=== PATIENT | female | born 1950 | race Caucasian/White ===

== ENCOUNTER 2016-07-03 07:25 | Day surgery (SDC) | payer MEDICARE, BC ==
[2016-07-03] MEDS ORDERED: Sodium Chloride 0.9% 1,000 ML IV SCH (08:00)
[2016-07-03] MEDS ORDERED: Midazolam 1 MG/ML 2 ML SDV ONE (08:22)
[2016-07-03] MEDS ORDERED: fentaNYL 100 MCG/2 ML SDV ONE (08:22)
[2016-07-03] MEDS ORDERED: Propofol 200 MG/20 ML SDV ONE (08:22)
[2016-07-03 11:05] VITALS: BP 131/81
--- NOTE | 2016-07-04 09:20 | OR ---
DATE OF PROCEDURE: 07/03/2016 PROCEDURE: Colonoscopy. FINDINGS: Normal colonoscopy. PREOPERATIVE DIAGNOSIS: History of colon polyps/family history of colorectal cancer. POSTOPERATIVE DIAGNOSIS: History of colon polyps/family history of colorectal cancer. COMPLICATIONS: None. SPORT INTERN: None. ANESTHESIA: MAC. Risks, benefits, alternatives, and limitations, including, but not limited to infection, bleeding, and perforation were explained to the patient and the patient wished to proceed. PROCEDURE IN DETAIL: The patient was placed in left lateral decubitus position. Digital rectal exam was performed without abnormality. The scope was introduced and advanced atraumatically to the ileocecal valve. The scope was brought back to the ascending, transverse, descending colon, and retroflexed. No evidence of old or new blood. No polyps. Prep was moderately acceptable. There was some liquid and solid stool remaining ; however, greater than 95% of the luminal surface could be seen. No other abnormalities. The patient tolerated the procedure well. Javon Rivas MD /[id number] MTDD
--- NOTE | 2016-07-07 07:49 | LETTER ---
07/03/2016 Kristen Hernandez [id number] [address] [id number] RE: SERGKRISTEN : 1950 I am writing this letter in regard to your recent colonoscopy. As we discussed after the procedure, your colonoscopy was normal. There was no evidence of polyps, blood vessel problems or cancer. You will need another colonoscopy in 8 years, as new polyps can occur. We will send you a reminder letter in approximately 8 years, but it is your responsibility to arrange the repeat colonoscopy with your primary care physician, as people move and addresses change, etc. Also, please keep in mind no test is perfect and colonoscopies are no exception. In fact, they can miss up to 10 percent of positive findings including colon cancer. I tell you this not to scare you but to protect you. What to look for is ongoing bleeding, severe changes in bowel function (not occasional diarrhea or constipation) and unintentional weight loss. Again I don't think you will have any problems I just want you to be safe. One last thing I recommend is you should be trying to eat a healthy diet that is high in fiber and low in fat. It is important to eat more fruits and vegetables, avoid smoking, limit alcohol intake, increase exercise, and increase calcium and folate intake. Foods that are rich in calcium include most dairy products, for example, milk and cheese. Foods that are rich in folate are chickpeas, kidney beans, and spinach. If you have any questions, please give me or your primary doctor a call and thank you for allowing me to be your surgeon. /[id number]
== END 2016-07-03 10:40 | disposition home or self-care (01) ==
LOC: JP.SDS 07:25
PROVIDERS: ATTEND Surgery
DX: Z12.11 Encounter for screening for malignant neoplasm of colon (principal); I25.10 Atherosclerotic heart disease of native coronary artery without angina pectoris; Z88.1 Allergy status to other antibiotic agents; Z88.8 Allergy status to other drugs, medicaments and biological substances; I10 Essential (primary) hypertension
CPT/HCPCS: G0105; J2250; J2704; J3010; J7040

== ENCOUNTER 2016-08-24 11:39 | Emergency (ER) | payer MEDICARE, BC ==
[2016-08-24 12:04] VITALS: BP 159/82
[2016-08-24] MEDS ORDERED: Ketorolac 60 MG/2 ML SDV IM ONE (12:11)
--- NOTE | 2016-08-24 12:17 | EDM.PDOC ---
ED HPI GENERAL MEDICAL PROBLEM - General Chief Complaint: Back Pain or Injury Stated Complaint: FELL AND INJURED BACK RT SIDE Time Seen by Provider: 08/24/16 12:15 Source of Information: Reports: Patient History Limitations: Reports: No Limitations - History of Present Illness INITIAL COMMENTS - FREE TEXT/NARRATIVE: pt arrived with severe pain in her rt chest area. She fell in the br this am and hit the rt side of hr chest. Onset: Sudden, Other ( Pt fell thur and her pain is getting worse. ) Duration: Day(s):, Getting Worse Associated Symptoms: Reports: No Other Symptoms Right Back Pain Score (Numeric/FACES): 2 - Related Data Allergies Allergy/AdvReac Type Severity Reaction Status Date / Time bupropion HCl Allergy Cannot Verified 08/24/16 11:59 [From Wellbutrin] Remember doxycycline AdvReac Nausea and Verified 08/25/16 09:58 Vomiting sertraline HCl [From Zoloft] AdvReac Diarrhea Verified 08/25/16 09:58 Home Meds: Home Meds Ibuprofen 800 mg PO Q8HR PRN 08/03/13 [History] traZODone 150 mg PO BEDTIME 08/03/13 [History] Biotin 800 mcg PO DAILY 10/09/14 [History] Aspirin [Adult Low Dose Aspirin EC] 81 mg PO DAILY 07/01/16 [History] Lisinopril [Prinivil] 10 mg PO DAILY 07/01/16 [History] Oxybutynin 5 mg PO TID 07/01/16 [History] atorvaSTATin [Lipitor] 80 mg PO BEDTIME 07/01/16 [History] Past Medical History HEENT History: Reports: Impaired Vision Cardiovascular History: Reports: Heart Murmur, High Cholesterol, Hypertension Respiratory History: Reports: Sleep Apnea Gastrointestinal History: Reports: Colon Polyp, Hemorrhoids Genitourinary History: Reports: Urinary Incontinence DROP MAN History: Reports: Dysfunctional Uterine Bleeding, , Spontaneous Musculoskeletal History: Reports: Back Pain, Chronic, Fracture Neurological History: Reports: Migraines Psychiatric History: Reports: Depression Hematologic History: Reports: Blood Transfusion(s) - Infectious Disease History Infectious Disease History: Reports: Chicken Pox, Measles, Mumps - Past Surgical History Female Surgical History: Reports: D&C, Hysterectomy, Oophorectomy, Tubal Ligation Neurological Surgical History: Reports: None Social & Family History - Tobacco Use Smoking Status *Q: Former Smoker Years of Tobacco use: 20 Packs/Tins Daily: 1 Used Tobacco, but Quit: Yes Month Tobacco Last Used: 0 Second Hand Smoke Exposure: No - Caffeine Use Caffeine Use: Reports: Coffee - Alcohol Use Days Per Week of Alcohol Use: 7 Number of Drinks Per Day: 1 Total Drinks Per Week: 7 - Recreational Drug Use Recreational Drug Use: No ED ROS GENERAL - Review of Systems Review Of Systems: See Below Constitutional: Reports: No Symptoms HEENT: Reports: No Symptoms Respiratory: Reports: No Symptoms Cardiovascular: Reports: No Symptoms Endocrine: Reports: No Symptoms GI/Abdominal: Reports: No Symptoms : Reports: No Symptoms Musculoskeletal: Reports: Other (pain in the rt post chest after a fall) ED EXAM, UPPER BACK/NECK PAIN - Physical Exam Exam: See Below Text/Narrative:: Pt fell in the bathroom and hit her rt post chest. Exam Limited By: No Limitations General Appearance: Alert, Moderate Distress Ears Exam: Normal TMs Nose Exam: Normal Inspection Throat/Mouth Exam: Normal Inspection Head Exam: Atraumatic Neck Exam: Normal Alignment Cardiovascular/Respiratory: Regular Rate, Rhythm GI/Abdominal: Soft, Non-Tender (Female) Exam: Deferred Rectal (Female) Exam: Deferred Back Exam: Other (pt is not tender ovr the thoracic spine. ) Extremities: Normal Inspection Neurologic: Alert Psychiatric: Normal Affect Skin Exam: Normal Color Course - Vital Signs Last Recorded V/S: Last Vital Signs Temp 35.8 C 08/24/16 11:59 Pulse 86 08/24/16 11:59 Resp 18 08/24/16 11:59 BP 159/82 H 08/24/16 11:59 Pulse Ox 97 08/24/16 11:59 - Orders/Labs/Meds Meds: Medications Discontinued Medications Generic Name Dose Route Start Last Admin Trade Name Freq PRN Reason Stop Dose Admin Ketorolac Tromethamine 60 mg 08/24/16 12:11 08/24/16 12:41 Toradol IM 08/24/16 12:12 60 mg ONETIME ONE Administration - Re-Assessments/Exams Free Text/Narrative Re-Assessment/Exam: 08/27/16 18:26 pt had a chest xray and a rib detail. There were no definite fractures seen. Her chest looked normal. Departure - Departure Time of Disposition: 13:26 Disposition: Home, Self-Care 01 Condition: Fair Clinical Impression: Contusion of chest wall - Discharge Information Instructions: Chest Contusion, [id number] Referrals: Josep Bruce MD [Primary Care Provider] - Forms: ED Department Discharge Care Plan Goals: ice or heat to rt posterior chest, motrin 600mg qid for the next 4-5 days. , norco 5/325 q6h prn for severe paim. flexeril 10mg hs.
--- NOTE | 2016-08-25 11:15 | CR ---
Ribs 2V w Chest Rt INDICATION: severe rt sided chest pain. FINDINGS: Heart size at the upper limits of normal. Dedicated right rib views are negative for acute fracture or cortical destruction.
== END 2016-08-24 14:05 | disposition home or self-care (01) ==
LOC: JP.ED 11:39
DX: S20.211A Contusion of right front wall of thorax, initial encounter (principal); E78.00 Pure hypercholesterolemia, unspecified; I10 Essential (primary) hypertension; G43.909 Migraine, unspecified, not intractable, without status migrainosus; F32.9 Major depressive disorder, single episode, unspecified; H54.7 Unspecified visual loss; Z88.8 Allergy status to other drugs, medicaments and biological substances; Z79.899 Other long term (current) drug therapy; Z79.82 Long term (current) use of aspirin; Z90.710 Acquired absence of both cervix and uterus; Z98.51 Tubal ligation status; Z98.890 Other specified postprocedural states; Z87.891 Personal history of nicotine dependence; W19.XXXA Unspecified fall, initial encounter
CPT/HCPCS: 71101; 96372; 99285; J1885; 99283

== ENCOUNTER 2020-01-09 08:03 | Day surgery (SDC) | payer MEDICARE, BC ==
[~2020-01-09 08:03] MED LIST: Midazolam 1 MG/ML 2 ML SDV ONE; Propofol 200 MG/20 ML SDV ONE; fentaNYL 100 MCG/2 ML SDV ONE
[2020-01-09] MEDS ORDERED: Sodium Chloride 0.9% 1,000 ML IV SCH (08:30)
[2020-01-09 11:39] VITALS: BP 124/64; PULSE 57
--- NOTE | 2020-01-09 16:04 | OR ---
DATE OF PROCEDURE: 01/09/2020 SURGEON: Javon Rivas MD PROCEDURE PERFORMED: Colonoscopy. FINDINGS: Marginal colon prep. COMPLICATIONS: None. TOBACCO WEIGHER: None. ANESTHESIA: MAC. PREOPERATIVE DIAGNOSIS: Family history of colorectal cancer. POSTOPERATIVE DIAGNOSIS: Family history of colorectal cancer. RISKS: Risks, benefits, alternatives, and limitations including, but not limited to infection, bleeding, and false positives and false negatives were explained to the patient who wished to proceed. PROCEDURE IN DETAIL: The patient was placed in the left lateral decubitus position. A digital rectal exam was performed without abnormality. Scope was introduced and advanced atraumatically to the cecal valve. A photo was taken. The scope was brought back to the ascending, transverse, descending colon, and retroflexed. The prep was marginal as approximately 90% luminal surface could be seen. Solid and liquid stool remaining. Suction and irrigation techniques were used to maximize visualization. No abnormalities in the cecum. As the scope was brought back through, no other abnormalities. No polyps. No masses. No colitis. No abnormalities on retroflex. Greater than 10 minutes was spent removing the scope. The patient tolerated the procedure well. Javon Rivas MD /[id number]
== END 2020-01-09 11:50 | disposition home or self-care (01) ==
LOC: JP.SDS 08:03
PROVIDERS: ATTEND Surgery
DX: Z12.11 Encounter for screening for malignant neoplasm of colon (principal); G47.33 Obstructive sleep apnea (adult) (pediatric); I25.10 Atherosclerotic heart disease of native coronary artery without angina pectoris; Z80.0 Family history of malignant neoplasm of digestive organs
CPT/HCPCS: G0105; J2250; J2704; J3010; J7030